=== PATIENT | female | born 1960 ===

== ENCOUNTER 2017-09-07 08:38 | Day surgery (SDC) | payer OTHER ==
[~2017-09-07 08:38] MED LIST: CLONAZEPAM1 MG PO; CYMBALTA20 MG PO; GABAPENTIN800 MG PO; LAMISTAL PO
== END 2017-09-07 13:20 | disposition home or self-care (01) ==
LOC: AMB-ENDOS 08:38
DX: K57.32 Diverticulitis of large intestine without perforation or abscess without bleeding (principal); K64.8 Other hemorrhoids